=== PATIENT | male | born 1980 | race African-American/Black ===

== ENCOUNTER 2017-01-08 11:47 | Emergency (ER) | payer BC ==
[~2017-01-08] VITALS: Ht 170.2 cm; Wt 79.4 kg
[~2017-01-08 11:47] MED LIST: CETI10TA16 PO
[2017-01-08 11:54] VITALS: BP 141/93
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
[2017-01-08] MEDS ORDERED: CYCL10TA2 PO (13:30)
== END 2017-01-08 13:47 | disposition home or self-care (01) ==
LOC: ER 11:47
DX: S16.1XXA Strain of muscle, fascia and tendon at neck level, initial encounter (principal); Z88.0 Allergy status to penicillin; V89.2XXA Person injured in unspecified motor-vehicle accident, traffic, initial encounter; Y92.413 State road as the place of occurrence of the external cause; Y93.89 Activity, other specified; Y99.8 Other external cause status
CPT/HCPCS: 72125; 99284-25